=== PATIENT | female | born 1990 | race Caucasian/White ===

== ENCOUNTER 2019-11-22 21:57 | Emergency (ER) | payer BC ==
[~2019-11-22] VITALS: Ht 167.6 cm; Wt 132.0 kg
[2019-11-22 22:24] VITALS: BP 133/66
== END 2019-11-22 23:10 | disposition left against medical advice (07) ==
LOC: ER 21:57
DX: O02.1 Missed abortion (principal); Z53.21 Procedure and treatment not carried out due to patient leaving prior to being seen by health care provider